=== PATIENT | female | born 1950 | race Caucasian/White ===

== ENCOUNTER 2016-12-25 10:36 | Emergency (ER) | payer MEDICARE ==
[~2016-12-25] VITALS: Ht 157.5 cm; Wt 67.6 kg
[2016-12-25 10:42] VITALS: BP 172/89; PULSE 63; RESP 18; O2SAT 98
--- NOTE | 2016-12-25 11:57 | ED.REPORT ---
HPI-Neurologic Deficit Date of Service Dec 25, 2016 ED Provider: Earl Richmond MD The patient is a 66 year old female with history of migraines, hypertension, and hyperlipidemia, who presents to the emergency department complaining of a headache that began 2 days ago. The pain is located to her left temporal region and will move to the right side. Her pain is similar to previous migraines. She also noticed right-sided numbness and double vision. She has taken Naproxen and aspirin with relief. Her symptoms are currently resolved. She reports that when the pain medication wears off the symptoms return. She did not come in initially because it was "Superbowl Saturday." Today she is concerned because she has not experienced the numbness with previous headaches. She denies any recent falls or trauma. She is not taking any blood thinners. She denies history of a previous stroke. Nursing Notes Stated Complaint: HAS EXPERIENCED MINI STROKE SYMPTOMS (ON SATURDAY) Chief Complaint: Neuro Symptoms/ Deficits Nursing Notes Reviewed: Yes Allergies: Coded Allergies: No Known Allergies (Unverified , 12/25/16) General Time Seen by Provider: 12:28 Chief Complaint Other (headache) Hx Obtained From: Patient Arrived By: Walk-in Sudden in Onset?: Yes Onset Occurred: Yesterday Symptom Duration: Intermittent Progression Since Onset: Intermittent Location: : Head Quality: Painful Radiation: : Does not radiate Severity: Current: No pain currently Severity: Maximum: Severe Additional Notes: +numbness, visual changes, headache Pertinent Negative: Pt denies other symptoms Recent Healthcare: No recent doctor visit, No recent hospitalization Similar Sx Previous: Yes Past Medical History Medications: Hydrochlorothiazide 12.5 mg, lisinopril 10 mg, atorvastatin 40 mg, aspirin 81 mg, multi-vitamin. Past Medical History Migraines High cholesterol Hypertension Family History Noncontributory Smoking History Current Every Day Smoker Social History Other Social History: Local resident Ambulatory Status Independent Review of Systems Eyes: Reports: Diplopia Neurologic: Reports: Headache, Numbness, Vision change Complete sys rev & neg: except as marked. Physical Exam Initial Vital Signs Vital Signs (First) Date Time Temp Pulse Resp B/P Pulse Ox O2 Delivery O2 Flow Rate FiO2 12/25/16 10:42 35.6 63 18 172/89 98 Room Air Initial VS: Reviewed ENT: Mucous membranes moist, Conjunctiva normal, No scleral icterus Neck: Supple, Non-tender, Full range of motion Abdomen / GI: Soft, Non-tender, No guarding, No rebound, No distention Lymphatic: No lymphadenopathy Extremities: Vascular intact, Neuro intact, No swelling, No tenderness Skin: Warm, Dry, No cyanosis Psychiatric: Mood/affect normal, Behavior normal, Normal thought content General/Constitutional: Awake, Alert, Cooperative Head / Eyes: Atraumatic, Normocephalic, PERRL, EOMI, No nystagmus Respiratory / Chest: Atraumatic, Breath sounds NL, Breath sounds = bilat, No respiratory distress, No rales, No rhonchi, No wheezing Cardiovascular: Heart rate NL, Regular rhythm, Heart sounds NL, No murmurs, No rubs, Peripheral circulation NL Neurologic: Oriented X3, Speech NL, No motor deficits, No sensory deficits, CN II - XII intact, Reflexes equal bilat, Cerebellar NL, Memory NL Speech fluent and organized. No facial droop. No pronator drift. Strength 5/5 to all extremities. Interpretation & Diagnostics Lab Results Interpretation Result Diagram: 12/25/16 1205 12/25/16 1205 Test 12/25/16 12:05 12/25/16 13:13 White Blood Count 6.1th/mm3 (3.8-10.1) Red Blood Count 4.65mil/mm3 (3.90-5.20) Hemoglobin 15.1g/dL (12.0-15.6) Hematocrit 45.1% (35.0-46.0) Mean Corpuscular Volume 97.0fL (81-100) Mean Corpuscular Hemoglobin 32.5pg (27.0-35.0) Mean Corpuscular Hemoglobin Concent 33.5% (32.0-37.0) Red Cell Distribution Width 13.8% (12.3-15.4) Platelet Count 219bil/L (150-400) Neutrophils (%) (Auto) 65.8% (40-74) Lymphocytes (%) (Auto) 26.1% (14-46) Monocytes (%) (Auto) 4.8% (4-12) Eosinophils (%) (Auto) 2.6% (0-5) Basophils (%) (Auto) 0.5% (0-3) Prothrombin Time 9.7sec (8.1-12.5) Prothromb Time International Ratio 0.91ratio Sodium Level 138mEq/L (134-144) Potassium Level 3.7mEq/L (3.5-5.2) Chloride Level 99mEq/L (97-108) Carbon Dioxide Level 24mmol/L (18-29) Blood Urea Nitrogen 18mg/dL (8-27) Creatinine 0.68mg/dL (0.57-1.00) Estimat Glomerular Filtration Rate 123mL/min (>59) Glucose Level 109mg/dL (60-99) Calcium Level 9.3mg/dL (8.5-10.1) Magnesium Level 2.1mg/dL (1.6-2.6) Total Bilirubin 0.6mg/dL (0.0-1.2) Aspartate Amino Transf (AST/SGOT) 24U/L (0-50) Alanine Aminotransferase (ALT/SGPT) 23U/L (0-32) Alkaline Phosphatase 81U/L (25-165) Total Protein 7.6g/dL (6.4-8.4) Albumin 4.5g/dL (3.4-5.0) Hold Mccoy Top Tube Received (Received) Urine Color Straw (YELLOW) Urine Appearance Hazy (CLEAR,HAZY) Urine pH 6.0 (5.0-8.0) Urine Specific Skipwith 1.010 (1.003-1.035) Urine Protein Negativemg/dL (NEG,TRACE) Urine Glucose (UA) Negativemg/dL (NEGATIVE) Urine Ketones Negativemg/dL (NEGATIVE) Urine Occult Blood Trace (NEGATIVE) Urine Nitrite Negative (NEGATIVE) Urine Bilirubin Negative (NEGATIVE) Urine Urobilinogen Normalmg/dL (NORMAL) Urine Leukocyte Esterase Negative (NEGATIVE) Urine RBC 0-2/hpf (0-2) Urine WBC 0-5/hpf (0-5) Urine Epithelial Cells Few/hpf (NONE-MOD) Urine Crystals None seen (NONE SEEN) Urine Bacteria Few/hpf (NONE-FEW) Urine Hyaline Casts None/lpf (NONE) Urine Granular Casts None seen (NONE SEEN) Urine Waxy Casts None seen (NONE SEEN) Urine Red Blood Cell Casts None seen (NONE SEEN) Urine White Blood Cell Casts None seen (NONE SEEN) Urine Mucus Present (None Seen) Urine Trichomonas None seen (NONE SEEN) Urine Yeast None (NONE SEEN) Urinalysis Comment None Urine Culture Reflexed Not indicated ECG Interpretation ECG Interpretation: Sinus bradycardia Normal axis Normal intervals No ST segment changes No T wave abnormalities No prior available for comparison Time: 12:13 Interpreted by: ED physician X-Ray Chest Interpretation Chest Xray Interpretation: IMPRESSION: No active cardiopulmonary disease. Dictated by: Abdoulaye Mcclellan M.D. on 12/25/2016 at 12:27 Interpretation / Wet Read by: Interpret - Radiologist CT Head Interpretation IMPRESSION: No acute intracranial abnormalities. Dictated by: Abdoulaye Mcclellan M.D. on 12/25/2016 at 12:35 Study: Head CT no contrast Interpretation / Wet Read by: Interpret - Radiologist Re-Eval/Medical Decision Med Decision/Clinical Course The patient is a 66 year old female with history of migraines, hypertension, and hyperlipidemia, who presents to the emergency department complaining of a headache that began 2 days ago. The pain is located to her left temporal region and will move to the right side. Her pain is similar to previous migraines. She also noticed right-sided numbness and double vision. She has taken Naproxen and aspirin with relief. Her symptoms are currently resolved. She reports that when the pain medication wears off the symptoms return. She did not come in initially because it was "Superbowsaturday." Today she is concerned because she has not experienced the numbness with previous headaches. She denies any recent falls or trauma. She is not taking any blood thinners. She denies history of a previous stroke. Here in the emergency department the patient is afebrile stable vital signs and examination as above. Of note her neurologic examination is completely within normal limits and nonfocal. She is without any active ongoing symptoms. EKG was obtained and interpreted by myself as documented above. CT scan of the head demonstrated no acute intracranial process. LABS: CBC unremarkable, CMP unremarkable, coags WNL Presentation somewhat vague. Primary concern would be transient ischemic attack and she is at somewhat higher risk given her age, history of hypertension , history of hyperlipidemia and smoking. I discussed this with the patient and explained that the only way to definitively rule out TIA would be for admission , MRI, carotid imaging and additional risk stratification. The patient was not very interested in admission and preferred to go outside and smoke. Initially she did agree to be admitted however when she was seen and further evaluated by the hospitalist Dr. Vaughn she opted to be discharged and follow up with her primary care physician at [facility] for outpatient workup. Discussed the pros and cons of both courses of action and she makes an informed decision. Follow- up and return precautions were given in detail she was discharged in stable condition. Considered other causes of her presentation today an atypical migraine headache certainly remains a possibility given that her symptoms occurred in the setting of her regular migraine headache constellation of symptoms. No evidence of intracranial mass lesion or hemorrhage. No findings suggestive of meningitis. Source of Hx: Old records Re-Evaluation/Progress #1: Time of Eval: 13:19 Re-Evaluation/Progress Note: Discussed workup results, diagnosis, and plan for admission. She agrees with plan. All questions were addressed. Re-Evaluation/Progress #2: Time of Eval: 13:54 Re-Evaluation/Progress Note: After the hospitalist evaluated the patient he felt the patient was safe to be discharged. Consultation : Consulted With: Hospitalist Call Returned at: 13:54 General Doc: Agrees with eval, Agrees with plan Note: The patient will be discharged home. Counseled Regarding: Diagnosis, Lab results, Need for follow-up, When/why to return to ED Discharge & Departure Impression: Primary Impression: TIA (transient ischemic attack) Transient cerebral ischemia type: unspecified Qualified Code: G45.9 - Transient cerebral ischemic attack, unspecified Additional Impressions: Numbness on right side Diplopia Headache Headache type: unspecified Headache chronicity pattern: unspecified pattern Intractability: not intractable Qualified Code: R51 - Headache Disposition: ADMITTED TO HOSPITAL Discharge Condition All VS Reviewed: Yes Condition: Stable Additional Instructions: Thank you for seeking care at the emergency room. Our primary goal today in the ED was to evaluate you for any life-threatening conditions. Your evaluation was reassuring. You may be experiencing symptoms related to your headache or this may have been a TIA. You will need to follow-up with your primary doctor tomorrow for further evaluation. You should return to the ED immediately if you develop focal weakness, increased pain, visual loss, dizziness, lightheadedness, weakness or any other concerning signs or symptoms. Thank you for letting us partake in your care today. Referrals: Sulma Talbert MD (PCP) Scribe Attestation Portions of this note were transcribed by Tamiko Ford. I, Dr. Richmond personally performed the history, physical exam and medical decision-making; I reviewed and confirmed the accuracy of the information in the transcribed note. Signed by: Fausto Craig, 12/25/2016 and 1400. copies to: Sulma Talbert MD,Earl Ramirez MD Dec 25, 2016 11:57 Tamiko Ford Dec 25, 2016 12:29
[2016-12-25 12:05] VITALS: BP 156/61; PULSE 66; RESP 19; O2SAT 99
[2016-12-25 12:14] LABS: BASOPHILS % (AUTO) 0.5 % (0-3); EOSINOPHILS % (AUTO) 2.6 % (0-5); MONOCYTES % (AUTO) 4.8 % (4-12); Mean Corpuscular Hemoglobin 32.5 pg (27.0-35.0); NEUTROPHILS % (AUTO) 65.8 % (40-74); Platelet Count 219 bil/L (150-400)
--- NOTE | 2016-12-25 12:29 | DRSVH ---
PROCEDURE: X-RAY CHEST ONE VIEW, PORTABLE ([id number]) INDICATIONS: ALTERMED MENTAL STATUS TECHNIQUE: One view of the chest was acquired. COMPARISON: None. FINDINGS: Surgical changes and devices: None. Lungs and pleura: No pleural effusions or pneumothorax. Lungs are clear. Mediastinum: Mediastinal contours appear normal. Heart size is normal. Bones and chest wall: No suspicious bony lesions. Overlying soft tissues appear unremarkable. IMPRESSION: No active cardiopulmonary disease. Dictated by: Abdoulaye Mcclellan M.D. on 12/25/2016 at 12:27 Approved by: Abdoulaye Mcclellan M.D. on 12/25/2016 at 12:27
[2016-12-25 12:31] LABS: INR 0.91 ratio
--- NOTE | 2016-12-25 12:38 | DRSVH ---
PROCEDURE: CT BRAIN WITHOUT CONTRAST ([id number]) INDICATIONS: 66 year-old woman with TIA symptoms. TECHNIQUE: Noncontrast 4.5 mm thick angled axial sections acquired from the foramen magnum to the vertex, with c oronal reformats. COMPARISON: None. FINDINGS: Image quality: Excellent. CSF spaces: Basal cisterns are patent. No extra-axial fluid collections. Ventricles are normal in size and shape. Brain: No midline shift. No intracranial masses or hemorrhage. Lazaro-white matter interface is norm al. Skull and face: Calvarium and visualized facial bones are intact, without suspicious lesions. Sinuses: Visualized sinuses and mastoids are clear. IMPRESSION: No acute intracranial abnormalities. Dictated by: Abdoulaye Mcclellan M.D. on 12/25/2016 at 12:35 Approved by: Abdoulaye Mcclellan M.D. on 12/25/2016 at 12:37
[2016-12-25 12:39] LABS: Magnesium 2.1 mg/dL (1.6-2.6)
[2016-12-25] MEDS ORDERED: Alum-Mag Hydrox-Simeth 30 mL Suspension PO PRN (13:25)
[2016-12-25] MEDS ORDERED: Ondansetron 2 mg/mL 2 mL Inj IVPUSH PRN (13:25)
[2016-12-25 13:47] LABS: COLOR,URINE STRAW (YELLOW)
[2016-12-25 13:48] LABS: APPEARANCE,URINE HAZY (CLEAR,HAZY); OCCULT BLOOD,URINE TRACE (NEGATIVE); UROBILINOGEN,URINE NORMAL (NORMAL)
[2016-12-25 14:11] VITALS: BP 156/61; PULSE 66; RESP 19; O2SAT 99
[2017-05-02] MEDS ORDERED: MULT-1018 PO (15:35)
[2017-05-02] MEDS ORDERED: LISI10TA PO (15:35)
[2017-05-02] MEDS ORDERED: HYDR12.55 PO (15:35)
[2017-05-02] MEDS ORDERED: LIP40 PO (15:35)
[2017-05-02] MEDS ORDERED: ASPI-973 PO (15:35)
== END 2016-12-25 14:12 | disposition home or self-care (01) ==
LOC: SED 10:36
DX: G45.9 Transient cerebral ischemic attack, unspecified (principal); R20.0 Anesthesia of skin; H53.2 Diplopia; R51 Headache; I10 Essential (primary) hypertension; E78.5 Hyperlipidemia, unspecified; F17.200 Nicotine dependence, unspecified, uncomplicated

== ENCOUNTER 2017-05-06 07:43 | Day surgery (SDC) | payer MEDICARE ==
--- NOTE | 2017-05-02 19:06 | PCM.ANEPRE ---
Anesthesia Pre-Op Review Reason for Review: ? tia hx- carotid artery stenosis reviewed with Dr Wallace - proceed DOS Anesthesia Recommendations: Proceed with Procedure Additional Comments 66yo woman for microlaryngosocopy. Hx TIA 01/04..no further symptoms. Carotid studies below. From 01/04 ER visit:.The patient is a 66 year old female with history of migraines, hypertension, and hyperlipidemia, who presents to the emergency department complaining of a headache that began 2 days ago. The pain is located to her left temporal region and will move to the right side. Her pain is similar to previous migraines. She also noticed right-sided numbness and double vision.Presentation somewhat vague. Primary concern would be transient ischemic attack and she is at somewhat higher risk given her age, history of hypertension, history of hyperlipidemia and smoking. I discussed this with the patient and explained that the only way to definitively rule out TIA would be for admission, MRI, carotid imaging and additional risk stratification. The patient was not very interested in admission and preferred to go outside and smoke. Initially she did agree to be admitted however when she was seen and further evaluated by the hospitalist Dr. Vaughn she opted to be discharged and follow up with her primary care physician at [facility] for outpatient workup. Discussed the pros and cons of both courses of action and she makes an informed decision. Follow-up and return precautions were given in detail she was discharged in stable condition. Considered other causes of her presentation today an atypical migraine headache certainly remains a possibility given that her symptoms occurred in the setting of her regular migraine headache constellation of symptoms. No evidence of intracranial mass lesion or hemorrhage. No findings suggestive of meningitis. Followup: 02/01 Carotid doppler showed no significant hemodynamic abnl. BRAIN MR ANGIOGRAM: 1. Moderate to high-grade bilateral posterior cerebral artery stenoses. 2. Moderate right internal carotid artery cavernous segment stenosis. NECK MR ANGIOGRAM: 1. Left internal carotid artery tandem stenoses as described above. Mild right internal carotid artery origin stenosis. 2. Left greater than right vertebral artery stenoses as described above. 3. Right paratracheal adenopathy, worrisome for metastatic disease. Ok to proceed with usual DOS evaluation, discussion of possible small increased risk of TIA/stroke perioperatively. Chart Reviewed by: Edwar Tao MD, MD May 02, 2017 19:06
[~2017-05-06] VITALS: Ht 157.5 cm; Wt 66.5 kg
[2017-05-06] VITALS (7 sets, daily range): BP systolic 110–145; BP diastolic 6–56; PULSE 48–56; RESP 11–16; O2SAT 97–100
[~2017-05-06 07:43] MED LIST: ASPI-973 PO; D5W IV ONE; DEXAMETHASONE IV ONE; HYDR12.55 PO; LIP40 PO; LISI10TA PO; Lactated Ringer's 1,000 ML IV ONE; MULT-1018 PO
[2017-05-06] MEDS ORDERED: Ondansetron 2 mg/mL 2 mL Inj ONE (07:44)
[2017-05-06] MEDS ORDERED: Glycopyrrolate 0.2 MG/ML 1mL Inj ONE (07:44)
[2017-05-06] MEDS ORDERED: Propofol 10 mg/mL 20 mL Inj ONE (07:44)
[2017-05-06] MEDS ORDERED: fentaNYL-PF 50 mCg/mL 2 mL Inj ONE (07:44)
[2017-05-06] MEDS ORDERED: Neostigmine 1 mg/mL 10 mL Inj ONE (07:44)
[2017-05-06] MEDS ORDERED: Rocuronium 10 mg/mL 5 mL Inj ONE (07:44)
[2017-05-06] MEDS ORDERED: Lactated Ringer's 500 ML IV PRN (09:59)
[2017-05-06] MEDS ORDERED: Lactated Ringer's 1,000 ML IV SCH (09:59)
--- NOTE | 2017-05-06 09:59 | PCM.HPANE ---
Patient Data Date of Service: May 06, 2017 Surgeon Admitting Provider: Attending Provider:Mahendra Amaya MD Primary Care Physician:Sulma Talbert MD Other Provider:Farhad Sosa Anesthesia Reason for Visit Polyp Of Larynx, Hoarseness, Gerd Ht/WT & BMI Height (Feet): 5 Height (Inches): 2 Weight (Kilograms): 66.5 Body Mass Index 26.00 Allergies Coded Allergies: No Known Allergies (Unverified , 12/25/16) Past Anesthesia History Anesthesia History: Positive for:: Abnormal Airway (laryngeal polyp current admission problem), Denies:: Anesthesia Reactions, Difficult Intubation, Fam Anesthesia Reaction , Fam Malignant Hypertherm, Malignant Hyperthermia Diabetes History Hx Diabetes?: No MRSA MRSA: No Medications Blood Thinner: Aspirin Hypertension Medication: Yes Home Meds Incl Beta Saniya: No Reported Medications Multivitamin (Multi Vitamin Daily)1 Each Tablet1 Each PO DAILY 30 Days Ref 0 05/02/17 Aspirin 81 Mg [id number] Mg PO DAILY Ref 0 05/02/17 Atorvastatin (Lipitor)40 Mg [id number] Mg PO DAILY Ref 0 05/02/17 Lisinopril 10 Mg Irxjdq91 Mg PO DAILY 30 Days Ref 0 05/02/17 Hydrochlorothiazide 12.5 Mg Isigtc18.5 Mg PO DAILY 30 Days Ref 0 05/02/17 History History of ENT Problems?: No HEENT History: Positive for:: Abnormal Airway (laryngeal polyp current admission problem) Dysphagia (related to polyp) Denies:: Cataracts Sinus Problem Denture Type: Full- Upper Full- Lower Teeth Condition: No Teeth Hx of Heart Problems?: Yes Cardiovascular History: Positive for:: Hypertension Denies:: Cardiac Surgery Chest Pain Congestive Heart Failure Edema Heart Murmur Irregular Heartbeat Pacemaker Thrombophlebitis Hx of Respiratory Problem?: No Respiratory History: Denies:: Asthma COPD Chest Surgery Emphysema Hemoptysis Oxygen Administration Pneumonia Tuberculosis Use of C-PAP Machine Hx Neurologic Problems?: Yes Neurological History: Positive for:: Headaches (tension and sinus ) Denies:: Alzheimer's Disease CVA Dementia Dizziness Parkinson's Disease Seizures TIA (? vs atypical migraine 01/04) Other Neurological Pertinent: pt had ED admit 01/04- working dx TIA vs atypical migraine. Hx of GI Problems?: No Hx of Problems?: No Genitourinary History: Denies:: Kidney Stones Urinary Tract Infection Female Hx: Denies:: Currently Endometriosis Pelvic Inflammatory Problems with Breasts? Skin History: Denies:: History Skin Disorders? Pressure Ulcers Hx Musculoskeletal Problems?: No Musculoskeletal History: Denies:: Back Injury Joint Replacement Musculoskeletal Trauma Hx of Psycho/Social Problems?: No Psycho Social History: Positive for:: Hx Depression Suicide Attempt (1984 after spouse suicided) Denies:: Anxiety Bipolar Disorder Hx Surgeries?: Yes (throat surgery and times 2) Hx Any Other Health Problems?: Yes Other History: Positive for:: Hospitalization Denies:: Cancer Thyroid Disease History Blood Transfusions: Positive for:: Accept Blood Products? Blood Transfusions (after 2nd daughter born) Denies:: Blood Transfuse Reaction Hx Diabetes: No Hx Alcohol Use: Yes (occasional)Hx Substance Use: No Smoking Status: Current Every Day Smoker Have You Smoked inLast 12 mo: YesApprox How Many Cigarettes/day: pack daily Stop/Bang S-Snoring: Do You Snore Loudly: No T-Tired: feel tired, fatigued: No O-Obsered: Observed not breath: No P-Blood Pressure: treated: Yes B- Body Mass Index > 35 kg/m2: Yes A- Age over 50: Yes N- Neck Large Circumference: No G- Gender Male: No CHRIS Total Score: 3 Risk Assessment Category Category 1A: Patient has history of documented sleep apnea, and HAS NOT received any narcotic, sedative or anesthesia administration during this stay. Category 1B: Patient has history of documented sleep apnea, and HAS received any narcotic , sedative or anesthesia administration during this stay Category 2: Patient has SUSPECTED Obstructive Sleep Apnea, and HAS received any narcotic , sedative or anesthesia administration during this stay. Category 3: Patient has SUSPECTED Obstructive Sleep Apnea and HAS NOT received narcotic, sedative or anesthesia administration during this stay. Category 4: Outpatient in Procedural Areas with known sleep apnea or who screen positive for High Risk via the STOP/BANG questionnaire. Exam Exam Vital Signs Vital Signs Date Time Temp Pulse Resp B/P Pulse Ox O2 Delivery O2 Flow Rate FiO2 05/06/17 08:16 35.5 55 16 139/52 98 Room Air General Appearance: Alert, Oriented X3, Cooperative, No Acute Distress HEENT/AIRWAY: MP 2 Lungs: Normal Air Movement Heart: Exam Unremarkable Meds/Labs/Diagnostics Admission Meds Current Medications Lactated Ringer's (Lr) 1,000 ml @ 10 mls/hr Q24H ONCE IV Last administered on 05/06/17t 07:47; Start 05/06/17 at 05:00; Stop 05/07/17 at 04:59 Plan Impression Patient chart reviewed, patient interviewed and anesthestic plan with risks, benefits, and alternatives discussed, and informed consent obtained. ASA Physical Status: ASA2 Mod Systemic Disease Anesthetic Plan: GA Bene/Risks/Altern/Consents: Yes HP Complete Prior to Induction: Yes Daniele Tamez MD May 06, 2017 09:33
[2017-05-06] MEDS ORDERED: Atropine 0.4 mg/mL Inj IVPUSH PRN (10:00)
[2017-05-06] MEDS ORDERED: Ondansetron 2 mg/mL 2 mL Inj IVPUSH PRN (10:00)
[2017-05-06] MEDS ORDERED: fentaNYL-PF 50 mCg/mL 2 mL Inj IVPUSH PRN (10:00)
[2017-05-06] MEDS ORDERED: Phenylephrine 10,000 mCg/mL Inj IVPUSH PRN (10:00)
[2017-05-06] MEDS ORDERED: EPHEDrine Sulfate 50 mg/mL Inj IVPUSH PRN (10:00)
[2017-05-06] MEDS ORDERED: HYDROmorphone 1 mg/mL Inj IVPUSH PRN (10:00)
[2017-05-06] MEDS ORDERED: MetoCLOpramide 5 mg/mL 2 mL Inj IVPUSH PRN (10:00)
[2017-05-06] MEDS ORDERED: Dexamethasone 4 mg/mL Inj IVPUSH PRN (10:00)
[2017-05-06] MEDS ORDERED: Labetalol 5 mg/mL 4 mL Inj IV PRN (10:00)
--- NOTE | 2017-05-06 10:49 | OP ---
[address] [address] OPERATIVE REPORT PATIENT: MILDRED TOLEDO : 1950 MR#: [id number] ADMIT: 05/06/2017 JOB ID: [id number] DATE OF SURGERY: 05/06/17 SURGEON: Mahendra Amaya MD OPERATION PERFORMED: 1. Micro direct laryngoscopy. 2. Vocal cord polyp removal from right and left vocal cords. PREOPERATIVE DIAGNOSIS(ES): POSTOPERATIVE DIAGNOSIS(ES): FINDINGS: Large fleshy polyp occupying the anterior 2/3 of the left vocal cord. More firm fleshy polyp occupying the anterior 1/2 of the right vocal cord. No additional lesions identified on laryngoscopy. OPERATIVE PROCEDURE: With the patient supine on the operating table, general orotracheal anesthesia was used with a small cuff tube. The upper gums were protected well with saline-soaked gauze. The Jako laryngoscope was positioned. The Lewy dial was positioned and held in place with the microscope in place, a 400 mm lens. The Microdirect laryngoscopy cups and scissors were then utilized to remove these polyps, left and right vocal cord, and labeled left and right. On the anterior aspect of the right true vocal cord, 2 mm was left to prevent anterior adhesions. Hemostasis was adequate. Procedure terminated. The patient was turned over to Anesthesia for emergence from anesthetics without known complications.
--- NOTE | 2017-05-06 10:56 | PCM.ANEP1 ---
Post Anesthesia PACU Phase 1 Assessment Vital Signs Vital Signs Date Time Temp Pulse Resp B/P Pulse Ox O2 Delivery O2 Flow Rate FiO2 05/06/17 08:16 35.5 55 16 139/52 98 Room Air Anesthetic Administered: GA Level of Alertness: Sleeping, hard to arouse MANN's with Equal Strength: Yes Pain: No Nausea or Vomiting: No CV Function & Hydration Stable: Yes Airway Device: Oralpharangeal Airway Oxygen Delivery: Simple Mask Lungs: Normal Air Movement PACU Phase 2 Assessment Complications: No Follow up Care: N/A Patient Instructions Provided: N/A Daniele Tamez MD May 06, 2017 10:56
--- NOTE | 2017-05-07 11:25 | PATH ---
SURGICAL PATHOLOGY Attending Physician:Mahendra Amaya MD (A CASE STATUS: Signed Out PATIENT NAME: MILDRED TOLEDO PID: [id number] : 1950 DATE COLLECTED:05/06/2017 15:49 SPECIMEN: 1: Larynx, Biopsy 2: Larynx, Biopsy CLINICAL HISTORY: POLYP VOCAL CORD AND LARYNX 1. LEFT VOCAL CORD BIOPSY 2. RIGHT VOCAL CORD BIOPSY FINAL DIAGNOSIS: 1.LEFT VOCAL CORD BIOPSY: LARYNGEAL POLYP, GELATINOUS TYPE, BENIGN, NEGATIVE FOR ATYPIA (SO-CALLED CLARK' S NODULE). 2.RIGHT VOCAL CORD BIOPSY: CHANGES CONSISTENT WITH BENIGN VOCAL CORD POLYP, GELATINOUS TYPE (SO-CALLED CLARK' S NODULE), NEGATIVE FOR ATYPIA. ICD10 J38.2 GROSS DESCRIPTION: The specimen is received in two formalin filled containers labeled with the patient's name. 1). The specimen is sublabeled "left vocal cord" and consists of are multiple light bolden portions of soft tissue and friable material which aggregate to 0.6 x 0.6 x 0.2 CM. The specimen is entirely submitted in cassette 1A. 2). The specimen is sublabeled "right vocal cord" and consists of a 0.4 x 0.3 x 0.2 CM portion of tissue which is entirely submitted in cassette 2A. 05/06/2017 DAC MICRO DESCRIPTION: See diagnosis. ICD-9 CODES: CPT CODES: 1: 42369 2: 55886 Electronically Signed Out Laz Morales MD [facility] [address], [place] [address] Technical component performed at [facility], [facility] [address], [place], [address]
== END 2017-05-06 23:59 | disposition home or self-care (01) ==
LOC: SAS 07:43
PROVIDERS: ATTEND Otolaryngology Facial Plastic Surgery
DX: J38.2 Nodules of vocal cords (principal); R49.0 Dysphonia; K21.9 Gastro-esophageal reflux disease without esophagitis; I10 Essential (primary) hypertension; F32.9 Major depressive disorder, single episode, unspecified; F17.210 Nicotine dependence, cigarettes, uncomplicated; Z79.82 Long term (current) use of aspirin
CPT/HCPCS: 31536; J1100; J2250; J2405; J2710; J3010; J7120